=== PATIENT | female | born 1980 | race American Indian/Alaskan Native ===

== ENCOUNTER 2020-05-22 11:38 | Emergency (ER) | payer SELFPAY ==
[2020-05-22] MEDS ORDERED: dexAMETHasone 4 MG/ML VIAL IM ONE (13:02)
[2020-05-22] MEDS ORDERED: KETOROLAC 30 MG/1 ML INJ IM ONE (13:02)
--- NOTE | 2020-05-22 13:16 | Emergency Department Report ---
ED Back Pain/Injury HPI - General Chief Complaint: Back Pain/Injury Stated Complaint: CAN BARLEY WALK Time Seen by Provider: 05/22/20 12:56 Source: patient Limitations: No Limitations - History of Present Illness Initial Comments: The patient was evaluated in the emergency department for symptoms described in the history of present illness. He/she was evaluated in the context of the global COVID-19 pandemic, which necessitated consideration that the patient might be at risk for infection with the virus that causes COVID-19. Institutional protocols and algorithms that pertain to the evaluation of patients at risk for COVID-19 are in a state of rapid change based on information released by regulatory bodies including the CDC and federal and state organizations. These policies and algorithms were followed during the patient's care in the emergency department. Please note that these policies, procedures and recommendations changed on a rapid basis. 39-year-old -[place] female presents to the emergency room complaining of lower back pain with radiation down the left hip anterior and posterior. Patient states that she had a near slip and fall 1 week ago but was able to catch herself. Patient states since then she has had progressively worse pain. She reports taking Tylenol arthritis and using pain patches are not helping much. Patient denies any urinary symptoms denies any bowel or urine incontinence. She reports it is worse with trying to walk and move. She has no other complaints. Onset/Timin -: week(s) Similar Symptoms Previously: No Radiation: left leg Severity scale (0 -10): 7 Quality: sharp, stabbing, aching Consistency: constant Improves With: none Worsens With: walking Associated Symptoms: difficulty walking. denies: confusion, chest pain, numbness, incontinence - Related Data Previous Rx's Medication Instructions Recorded Last Taken Type Meloxicam [Mobic] 7.5 mg PO QDAY #20 tablet 05/22/20 Unknown Rx predniSONE [Deltasone] 20 mg PO QDAY 5 Days #5 tab 05/22/20 Unknown Rx Allergies Allergy/AdvReac Type Severity Reaction Status Date / Time No Known Allergies Allergy Unverified 05/22/20 11:51 ED Review of Systems ROS: Stated complaint: CAN BARLEY WALK Other details as noted in HPI Comment: All other systems reviewed and negative ED Past Medical Hx - Past Medical History Previous Medical History?: No - Surgical History Past Surgical History?: No - Social History Smoking Status: Never Smoker Substance Use Type: None - Medications Home Medications: Home Medications Medication Instructions Recorded Confirmed Last Taken Type Meloxicam [Mobic] 7.5 mg PO QDAY #20 tablet 05/22/20 Unknown Rx predniSONE [Deltasone] 20 mg PO QDAY 5 Days #5 tab 05/22/20 Unknown Rx ED Physical Exam - General Limitations: No Limitations General appearance: alert, in no apparent distress - Head Head exam: Present: atraumatic, normocephalic - Eye Eye exam: Present: normal appearance - ENT ENT exam: Present: mucous membranes dry - Neck Neck exam: Present: normal inspection, full ROM - Expanded Lower Extremity Exam Left Hip exam: Present: full ROM, tenderness. Absent: swelling Upper Leg exam: Present: full ROM, tenderness. Absent: swelling Knee exam: Present: normal inspection, full ROM Lower Leg exam: Present: normal inspection, full ROM Ankle exam: Present: normal inspection, full ROM - Expanded Back Exam Expanded Back exam: Sciatic Notch Tenderness: Left, Negative Straight Leg Raising: Left - Neurological Exam Neurological exam: Present: alert, oriented X3 - Psychiatric Psychiatric exam: Present: normal affect, normal mood - Skin Skin exam: Present: warm, dry, intact, normal color. Absent: rash ED Course Vital Signs 05/22/20 11:55 Respiratory 18 Rate ED Medical Decision Making - Medical Decision Making 39-year-old -Faro[place] female presents to the emergency room complaining o f lower back pain with radiation down the left hip anterior and posterior. Patient states that she had a near slip and fall 1 week ago but was able to catch herself. Patient states since then she has had progressively worse pain. She reports taking Tylenol arthritis and using pain patches are not helping much. Patient denies any urinary symptoms denies any bowel or urine incontinence. She reports it is worse with trying to walk and move. She has no other complaints. Patient is given injection of Toradol and dexamethasone 8 mg. Patient was able to ambulate without difficulty on discharge. Patient was discharged home on Mobic and prednisone. Referral placed to back specialist. Critical care attestation.: If time is entered above; I have spent that time in minutes in the direct care of this critically ill patient, excluding procedure time. ED Disposition Clinical Impression: Lumbar back pain with radiculopathy affecting left lower extremity, Sciatica of left side Disposition: DC-01 TO HOME OR SELFCARE Is pt being admited?: No Does the pt Need Aspirin: No Condition: Stable Instructions: Lumbar Radiculopathy (ED) Additional Instructions: Take medications as prescribed. Do stretches as prescribed. Follow-up with back specialist. Prescriptions: predniSONE [Deltasone] 20 mg PO QDAY 5 Days #5 tab Meloxicam [Mobic] 7.5 mg PO QDAY #20 tablet Referrals: [facility] [Provider Group] - 3-5 Days Forms: Work/School Release Form(ED)
[2020-05-22 13:51] VITALS: BP 149/81
== END 2020-05-22 13:22 | disposition home or self-care (01) ==
LOC: ED 11:38
DX: M54.16 Radiculopathy, lumbar region (principal)
CPT/HCPCS: 96372; 99282; J1100; J1885

== ENCOUNTER 2021-02-11 10:14 | Emergency (ER) | payer OTHER ==
[2021-02-11 11:06] VITALS: BP 144/58
--- NOTE | 2021-02-11 12:45 | Event Note ---
ED Screening Note Date of service: 02/11/21 Time: 12:44 ED Screening Note: 40-year-old female patient presents to emergency department with complaints of right foot pain starting this morning. Patient states she was ambulating barefoot in her home when she accidentally sustained a puncture wound to the plantar surface of her right foot. Patient is unsure what she stepped on. No history of diabetes. Tetanus immunization is up-to-date. General: Awake, appropriately interactive, no acute distress. Neck: Supple. Full range of motion intact. Cardiovascular: Normal peripheral perfusion. Pulmonary: No respiratory distress. Patient is speaking normally without use of accessory muscles. Skin: Small puncture wound to the plantar surface of the right foot. Neurological: No facial asymmetry. Speech is clear. Follows commands. Patient is alert and oriented. Musculoskeletal: Moves all four extremities spontaneously with normal range of motion. Psych: Cooperative. Appropriate mood and affect. I have greeted and performed a focused rapid initial assessment of this patient. A comprehensive ED assessment and evaluation of the patient, analysis of all test results, and completion of the medical decision-making process will be conducted by additional ED providers. This initial assessment/diagnostic orders/clinical plan/treatment(s) is/are subject to change based on patients health status, clinical progression and re-assessment. Further treatment and workup at subsequent clinical provider's discretion. Patient/guardian urged not to elope from the ED as their condition may be serious if not clinically assessed and managed.
--- NOTE | 2021-02-11 13:26 | XRay Report ---
RIGHT FOOT 3 VIEWS INDICATION / CLINICAL INFORMATION: Possible foreign body in the right foot. COMPARISON: None available. FINDINGS: BONES and JOINT(S): No acute fracture or subluxation. No significant arthritis. SOFT TISSUES: No radiopaque foreign body or other significant abnormality. ADDITIONAL FINDINGS: None. IMPRESSION: No radiopaque foreign body in the right foot or other acute findings. Signer Name: Shahid Desai MD Signed: 02/11/2021 1:21 PM Workstation Name: [id number]
--- NOTE | 2021-02-11 13:43 | Emergency Department Report ---
ED General Adult HPI - General Chief complaint: Puncture Wound Stated complaint: CAN'T WALK ON RIGHT FOOT/ PAIN Time Seen by Provider: 02/11/21 12:44 Source: patient Mode of arrival: Ambulatory Limitations: No Limitations - History of Present Illness Initial comments: 40-year-old female patient presents to emergency department with complaints of right foot pain starting this morning. Patient states she was ambulating barefoot in her home when she accidentally sustained a puncture wound to the plantar surface of her right foot. Patient is unsure what she stepped on. No history of diabetes. Tetanus immunization is up-to-date. Denies paresthesias, numbness, weakness. Denies all other complaints at this time. - Related Data Previous Rx's Medication Instructions Recorded Last Taken Type Meloxicam [Mobic] 7.5 mg PO QDAY #20 tablet 05/22/20 Unknown Rx predniSONE [Deltasone] 20 mg PO QDAY 5 Days #5 tab 05/22/20 Unknown Rx Allergies Allergy/AdvReac Type Severity Reaction Status Date / Time No Known Allergies Allergy Verified 02/11/21 11:02 ED Review of Systems ROS: Stated complaint: CAN'T WALK ON RIGHT FOOT/ PAIN Other details as noted in HPI Other: GENERAL: Negative for fever. CARDIOVASCULAR: Negative for chest pain. PULMONARY: Negative for shortness of breath. GASTROINTESTINAL: Negative for abdominal pain. MUSCULOSKELETAL: Negative for back pain. NEUROLOGICAL: Negative for headache. INTEGUMENTARY: Positive for puncture wound. ED Past Medical Hx - Past Medical History Previous Medical History?: No - Surgical History Past Surgical History?: No - Social History Smoking Status: Never Smoker Substance Use Type: None - Medications Home Medications: Home Medications Medication Instructions Recorded Confirmed Last Taken Type Meloxicam [Mobic] 7.5 mg PO QDAY #20 tablet 20 Unknown Rx predniSONE [Deltasone] 20 mg PO QDAY 5 Days #5 tab 05/22/20 Unknown Rx ED Physical Exam - General Limitations: No Limitations - Other Other exam information: General: Awake, appropriately interactive, no acute distress. Neck: Supple. Full range of motion intact. Cardiovascular: Normal peripheral perfusion. Pulmonary: No respiratory distress. Patient is speaking normally without use of accessory muscles. Skin: Small superficial puncture wound to the plantar surface of the right foot, no active bleeding. Distal neurovascular and motor/sensory function is intact. Neurological: No facial asymmetry. Speech is clear. Follows commands. Patient is alert and oriented. Musculoskeletal: Moves all four extremities spontaneously with normal range of motion. Ambulatory. Psych: Cooperative. Appropriate mood and affect. ED Course Vital Signs 02/11/21 11:05 Temperature 98.5 F Pulse Rate 80 Respiratory 18 Rate Blood Pressure 144/58 O2 Sat by Pulse 99 Oximetry ED Medical Decision Making - Medical Decision Making Differential diagnosis including but not limited to: abrasion, puncture wound, retained foreign body On reevaluation, patient remains stable. Repeat neurovascular exam remains intact. X-rays without radiographic evidence of soft tissue foreign body. Patient is ambulatory without assistance, no history of diabetes, tetanus is up-to-date. No clinical indication for further diagnostic work-up on an emergent basis at this time. Patient will be discharged home with instructions for symptomatic treatment and referred to primary care provider for close outpatient follow-up. Patient expressed understanding and is agreeable to plan of care. Strict return precautions provided. Repeat exam is unremarkable and benign. History, exam, diagnostic testing, and current condition do not suggest worrisome pathology to warrant further testing, continued ED treatment, admission, or surgical evaluation at this point. Given the low probability of a significant medical illness, it would be more likely to result in harm than benefit to perform further testing at this stage. Discussed findings, presumptive diagnosis, need for follow-up and specific signs/symptoms that should prompt immediate return to the emergency department. Instructions were explained in detail to the patient in addition to giving written discharge information. Patient expressed understanding and was given the opportunity to ask questions, all of which were satisfactorily answered prior to discharge home. Critical care attestation.: If time is entered above; I have spent that time in minutes in the direct care of this critically ill patient, excluding procedure time. ED Disposition Clinical Impression: Puncture wound of right foot Qualifiers: Encounter type: initial encounter Qualified Code(s): S91.331A - Puncture wound without foreign body, right foot, initial encounter Disposition: TO HOME OR SELFCARE Is pt being admited?: No Does the pt Need Aspirin: No Condition: Stable Instructions: Puncture Wound, [id number] Additional Instructions: Take Tylenol every 4 hours and Motrin every 8 hours as needed for pain. Keep affected area clean. Apply antibiotic ointment 3 times daily. Follow-up with primary care provider this week. Call today to schedule an appointment. See referral information below. Return to the emergency department immediately for new or worsening symptoms. Referrals: [facility] [Provider Group] - 3-5 Days Time of Disposition: 13:43
== END 2021-02-11 14:21 | disposition home or self-care (01) ==
LOC: ED 10:14
DX: S91.331A Puncture wound without foreign body, right foot, initial encounter (principal); X58.XXXA Exposure to other specified factors, initial encounter; Y93.89 Activity, other specified; Y92.89 Other specified places as the place of occurrence of the external cause; Y99.8 Other external cause status
CPT/HCPCS: 99282; 99283